=== PATIENT | female | born 1995 ===

== ENCOUNTER 2017-04-20 18:01 | Emergency (ER) | payer MEDICAID ==
[2017-04-20 18:02] VITALS: BMI 22.4
[2017-04-20 18:21] VITALS: RESP 18
--- NOTE | 2017-04-20 18:31 | C.PDOC ---
History Of Present Illness 21 y/o F at 20 weeks gestation p/w lower abdominal pain with a white thick discharge this morning that had pink spots within it. Patient unsure if this is blood. She denies dysuria, back pain, vomiting, fever. Time Seen by Provider: 04/20/17 18:22 Chief Complaint (Nursing): Abdominal Pain History Per: Patient History/Exam Limitations: no limitations Onset/Duration Of Symptoms: Sudden Onset (Since morning) Past Medical History Reviewed: Historical Data, Nursing Documentation, Vital Signs Vital Signs: Last Vital Signs Temp 98.1 F 04/20/17 18:16 Pulse 101 H 04/20/17 18:16 Resp 18 04/20/17 18:16 BP 135/37 L 04/20/17 18:16 Pulse Ox 100 04/20/17 19:08 - Medical History PMH: Asthma Family History: States: No Known Family Hx - Social History Hx Tobacco Use: Yes Hx Alcohol Use: No Hx Substance Use: No - Immunization History Hx Tetanus Toxoid Vaccination: No Hx Influenza Vaccination: No Hx Pneumococcal Vaccination: No Review Of Systems Except As Marked, All Systems Reviewed And Found Negative. Constitutional: Negative for: Fever Cardiovascular: Negative for: Chest Pain Physical Exam - Physical Exam Additional Physical Exam Comments: Constitutional: No acute distress. Head: Normocephalic. Atraumatic. Eyes: PERRL. ENT: Moist mucous membranes. Neck: Supple. Cardiovascular: Regular rate. Radial pulses 2+ bilaterally. Chest: No tenderness. Respiratory: Clear to auscultation bilaterally. GI: Soft. Nontender. Nondistended. Pelvic: No CMT or adnexal tenderness. +cottage cheese like discharge. Back: No CVA tenderness. Musculoskeletal: No tenderness or swelling of extremities. Skin: No rash. Neurologic: Alert, no focal deficit. ED Course And Treatment - Laboratory Results Result Diagrams: 04/20/17 18:41 04/20/17 18:41 O2 Sat by Pulse Oximetry: 100 Medical Decision Making Medical Decision Making: EFW = 291 g/10 ounces plus or -2 ounces Amniotic fluid: Normal qualitatively Placenta: Anterior and free of the cervical os Presentation: Footling breech HR =[144 bpm] Cervix: 3.4 cm and closed with Survey Abdominal CORD insertion [normal] Stomach [Normal] Kidneys [Normal] Blader [Normal][ Posterior fossa [normal] IMPRESSION: 1. Single live intrauterine with an estimated menstrual age of 19 weeks and 2 days plus or -1 week and 2 days. 2. Limited survey. Disposition - Disposition Disposition: HOME/ ROUTINE Disposition Time: 19:28 Condition: STABLE Prescriptions: Miconazole Nitrate [Monistat 7] 1 appl VG QPM #45 gm Instructions: Vulvovaginal Candidiasis (ED) - Clinical Impression Clinical Impression: Vaginal candidiasis
[2017-04-20 18:45] LABS: BASO % 0.3 % (0.0-2.0); EOS # 0.1 K/uL (0.0-0.7); EOS % 0.7 % (0.0-4.0); HEMATOCRIT 36.2 % (34.0-47.0); LYMPH # 2.6 K/uL (1.0-4.3); MEAN CORPUSCULAR HEMOGLOBIN 30.2 pg (27.0-31.0); MEAN PLATELET VOLUME 8.5 fL (7.2-11.7); RED CELL DISTRIBUTION WIDTH 14.4 % (11.5-14.5)
[2017-04-20 18:46] LABS: MEAN CELL VOLUME 91.4 fL (81.0-99.0); WHITE BLOOD COUNT 11.9 K/uL (4.8-10.8)
[2017-04-20 18:53] LABS: CHLORIDE 105 mmol/L (98-107); SODIUM 135 mmol/L (132-148)
[2017-04-20 18:54] LABS: POTASSIUM 4.1 mmol/L (3.6-5.2)
[2017-04-20 18:56] LABS: ALB/GLOB RATIO 1.1 (1.0-2.1); ALKALINE PHOSPHATASE 48 U/L (38-126); ALT/SGPT 25 U/L (9-52); AST/SGOT 31 U/L (14-36); BILIRUBIN,TOTAL 0.3 mg/dL (0.2-1.3); BLOOD UREA NITROGEN 10 mg/dL (7-17); CALCIUM 8.6 mg/dl (8.6-10.4); CARBON DIOXIDE 22 mmol/L (22-30); GFR AFRICAN-AMERICAN > 60; GLUCOSE,RANDOM 81 mg/dL (65-105); TOTAL PROTEIN 6.7 g/dL (6.3-8.3)
--- NOTE | 2017-04-20 19:06 | US ---
EXAM: US First Trimester, Transabdominal, Fetus A CLINICAL HISTORY: 21 years old, female; Pain; complicated by abdominal or pelvic pain; Lower; Second trimester; Gestational age or lmp: 19 wks; ; Additional info: Vaginal bleeding in , assess cervix TECHNIQUE: Real-time transabdominal obstetrical ultrasound of the maternal pelvis and the first gestation (Fetus A) of a first trimester with image documentation. EXAM DATE/TIME: Exam ordered 04/20/2017 6:26 PM COMPARISON: No relevant prior studies available. FINDINGS: Biometry BPD = [4.49cm];Estimated Menstrual Age = [19w4d]; Range = [32D0V-14M2S] HC = [16.1cm]; Estimated Menstrual Age = [18w6d]; Range = [89H8P-93R0Q] AC = [13.58cm]; Estimated Menstrual Age = [19w0d]; Range = [65L7X-76T5R] FL = [3.19cm]; Estimated Menstrual Age = [19w6d]; Range = [54Q2U-14L2M] HC/AC Ratio = [1.19] normal 1.09-1.26 EFW = 291 g/10 ounces plus or -2 ounces Amniotic fluid: Normal qualitatively Placenta: Anterior and free of the cervical os Presentation: Footling breech HR =[144 bpm] Cervix: 3.4 cm and closed with Survey Abdominal CORD insertion [normal] Stomach [Normal] Kidneys [Normal] Blader [Normal][ Posterior fossa [normal] IMPRESSION: 1. Single live intrauterine with an estimated menstrual age of 19 weeks and 2 days plus or -1 week and 2 days. 2. Limited survey.
[2017-04-20 19:08] LABS: RBC URINE 2 /hpf (0-3); URINE BACTERIA RARE (<OCC); URINE BILIRUBIN NEGATIVE (NEGATIVE); URINE BLOOD NEGATIVE (NEGATIVE); URINE COLOR Yellow (YELLOW); URINE GLUCOSE (UA) NORMAL (Normal); URINE KETONE NEGATIVE (NEGATIVE); URINE LEUKOCYTE ESTERASE NEG Leu/uL (Negative); URINE PROTEIN NEGATIVE (NEGATIVE); URINE UROBILINOGEN NORMAL mg/dL (0.2-1.0)
[2017-04-20 19:37] VITALS: BP 96/64; PULSE 73; TEMP 97.9; O2SAT 99
== END 2017-04-20 19:37 | disposition home or self-care (01) ==
LOC: C.ER 18:01
DX: O98.812 Other maternal infectious and parasitic diseases complicating pregnancy, second trimester (principal); B37.3 Candidiasis of vulva and vagina; Z3A.19 19 weeks gestation of pregnancy

== ENCOUNTER 2017-05-24 14:07 | Emergency (ER) | payer MEDICAID, OTHER ==
[2017-05-24 14:27] VITALS: BMI 24.6
[2017-05-24 14:54] LABS: SQUAMOUS EPITHIAL 15 /hpf (0-5); URINE AMORPHOUS SEDIMENT RARE /ul (<OCC); URINE BACTERIA RARE (<OCC); URINE BILIRUBIN NEGATIVE (NEGATIVE); URINE BLOOD NEGATIVE (NEGATIVE); URINE CLARITY Hazy (Clear); URINE COLOR Yellow (YELLOW); URINE GLUCOSE (UA) NORMAL (Normal); URINE LEUKOCYTE ESTERASE NEG Leu/uL (Negative); URINE NITRATE NEGATIVE (NEGATIVE); URINE PROTEIN NEGATIVE (NEGATIVE); URINE UROBILINOGEN NORMAL mg/dL (0.2-1.0)
--- NOTE | 2017-05-24 15:22 | OBHP ---
Datetime: 05/24/2017 15:17 IP Adm Impression: , intrauterine IP Chief Complaint Other: c/o pelvic pressure IP Admit Plan: Discharge home Admit Comment, IP Provider: at 24+weeks came with c/o pelvic pressure since last night. pt felt better after passing stools,no ctxs, vb, lof,+fm.no dysuria. obhx primi pmh den med pnv all morhine/amoxcillin soch de psh inguinal her jarret repair ua neg a/p at 24weeks r/o uti dc home ptl given po hyration f/u in 2-3 days Pelvic Type - PN: Adequate Extremities - PN: Normal Abdomen - PN: Normal Back - PN: Normal Breast - PN: Normal Lungs - PN: Normal Heart - PN: Normal Thyroid - PN: Normal Neurologic - PN: Normal HEENT - PN: Normal General - PN: Normal FHR - Baseline A Provider: 130 Contraction Comments Provider: none Comments, ACOG Physical Exam: gravid,non tender Vital Signs Provider: Reviewed; Within Normal Limits NICHD Variability Prov Fetus A: Moderate 6-25bpm Dilatation, Provider: 0 Effacement, Provider: 0 Station, Provider: -3 Genitourinary Exam: Normal DTRs - PN: Normal
--- NOTE | 2017-05-24 15:24 | OBDCSUM ---
Datetime: 05/24/2017 15:17 Discharged to, Provider: Other Follow up at, Provider: clinic Disch Instr Activity: Normal activity Disch Instr Diet: Regular Discharge Time: 05/24/2017 15:18 Follow up in weeks, Provider: friday Disch Referrals: None Discharge Comment, Provider: dc home ptl given po hyration f/u in 2-3 days F/U dR [place] [phone] Discharge Diagnosis Prov Other: 24wee nst r/o uti
== END 2017-05-24 15:17 | disposition home or self-care (01) ==
LOC: C.EROB 14:07
DX: O26.892 Other specified pregnancy related conditions, second trimester (principal); R10.2 Pelvic and perineal pain; Z3A.24 24 weeks gestation of pregnancy

== ENCOUNTER 2017-07-31 17:08 | Emergency (ER) | payer MEDICAID, OTHER ==
[2017-07-04 17:46] VITALS: BMI 26.9
[2017-07-31] MEDS ORDERED: Lactated Ringer's 1,000 ML IV ONE (18:09)
[2017-07-31 18:12] LABS: RBC URINE 3 /hpf (0-3); TRANSITIONAL EPITHIAL < 1 /hpf (0-3); URINE BACTERIA MOD (<OCC); URINE BILIRUBIN NEGATIVE (NEGATIVE); URINE BLOOD NEGATIVE (NEGATIVE); URINE COLOR Yellow (YELLOW); URINE GLUCOSE (UA) NORMAL (Normal); URINE KETONE NEGATIVE (NEGATIVE); URINE LEUKOCYTE ESTERASE 1+ Leu/uL (Negative); URINE PROTEIN NEGATIVE (NEGATIVE); URINE UROBILINOGEN NORMAL mg/dL (0.2-1.0); WBC URINE 9 /hpf (0-5)
[2017-07-31] MEDS ORDERED: ceFAZolin IV 1 gm in Dextrose 1 GM/50 ML BAG IVPB ONE (18:16)
[2017-08-01 01:21] VITALS: BP 93/75; PULSE 87; RESP 18; TEMP 97.7; O2SAT 100
== END 2017-07-31 19:51 | disposition home or self-care (01) ==
LOC: C.EROB 17:08
DX: O26.893 Other specified pregnancy related conditions, third trimester (principal); R10.9 Unspecified abdominal pain; Z3A.32 32 weeks gestation of pregnancy
CPT/HCPCS: 81001; 96365; 99283; J0690; J7120

== ENCOUNTER 2017-08-22 13:16 | Emergency (ER) | payer OTHER ==
[2017-07-04 17:46] VITALS: BMI 26.9
--- NOTE | 2017-08-25 10:04 | OBHP ---
Datetime: 08/22/2017 14:06 IP Adm Impression: Term, intrauterine IP Admit Plan: Discharge home Admit Comment, IP Provider: CC: Abdominal cramping HPI: 21 year old female that is at 37 weeks and 3 days with a past medical history of a he art murmur presents with abdominal pain that began last night at 8PM. When the pain began the patient states it was a 7/10. The patient took a warm bath that alleviated the pain. The patient states that she feels her "stomach tightening" and is currently in no pain. At 14 weeks of the patient was admitted to [facility] because she saw blood clots. 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: FDLMP: 12/03/16 LENNY: 09/09/17 Miscarriage at 8 weeks in 2013 and a D _C was performed No hx of abnormal pap smears STDs- Chlmaydia in 2013 that was treated 9 X 4 X 28 Past Medical Hx: Heart murmur that was diagnosed when she was a baby Surgical Hx: inguinal hernia repair at 8 years old Family Hx: Aunt-Breast Cancer, Aunt-Ovarian cancer Social Hx: no tobacco, no alcohol, no drugs, father of the baby lives in the [place]; p atient currently lives with mom at home Medications: none Allergies: peanuts- itchy, strawberries- hives, Tuna-itchy, seafood-itchy Amoxicillan-rash Morphine- bradycardia A/P: 21 year old female that is presents to the [facility] for lower pelvic sharp pain. 1.) Patient placed on heart monitor 2.) Disposition: patient to be discharged home and to follow up with obgyn at next week's appointm ent. Case discussed with Dr. Lefty Curran, PGY-1 Patient examiend.agree with resident exam, assessment and plan Pelvic Type - PN: Adequate Extremities - PN: Normal Abdomen - PN: Normal Back - PN: Normal Breast - PN: Normal Lungs - PN: Normal Heart - PN: Normal Thyroid - PN: Normal Neurologic - PN: Normal HEENT - PN: Normal General - PN: Normal FHR - Baseline A Provider: 140 Membranes, Provider: Intact Comments, ACOG Physical Exam: Awake, Alert and Oriented x3 Head Exam: ATRAUMATIC, NORMAL INSPECTION, NORMOCEPHALIC Eye Exam: EOMI, Normal appearance ENT Exam: Mucous Membranes Moist Respiratory Exam: bilateral clear to auscultation, normal breathing pattern. Cardiology: REGULAR RHYTHM, RRR, S1S2 GI _ Abdominal Exam: Soft, Tenderness, Normal Bowel Sounds, Fundal height at about 37 weeks. Extremities Exam: Normal Inspection. absent: Pedal Edema, Tenderness Psychiatric exam: Normal Affect, Normal Mood Gestation - Est Wks by US: 37.0 Pool Provider: Negative IP Hx Assessment: The History has been Reviewed and is Current EGA AdmitDate IP: 37.3 Vital Signs Provider: Reviewed; Within Normal Limits IP Chief Complaint: Uterine contractions NICHD Variability Prov Fetus A: Moderate 6-25bpm NICHD Accel Fetus A IP Provider: 15X15 FHR Category Provider Fetus A: Category I NICHD Decel Fetus A IP Provider: None Dilatation, Provider: 0 Effacement, Provider: 0 Station, Provider: -4 Genitourinary Exam: Normal DTRs - PN: Not Done Datetime: 07/31/2017 17:48 IP Chief Complaint Other: Abdominal pain
[2017-08-25 14:02] VITALS: BP 117/52; PULSE 96
== END 2017-08-22 14:29 | disposition home or self-care (01) ==
LOC: C.EROB 13:16
DX: O26.93 Pregnancy related conditions, unspecified, third trimester (principal); R10.2 Pelvic and perineal pain; Z3A.37 37 weeks gestation of pregnancy

== ENCOUNTER 2017-11-05 13:20 | Emergency (ER) | payer MEDICAID, OTHER ==
[2017-11-05 13:20] VITALS: BMI 32.2
[2017-11-05 13:30] VITALS: RESP 20; TEMP 97.9
--- NOTE | 2017-11-05 14:45 | C.PDOC ---
History Of Present Illness 22 yo female c/o subjective fever, cough, nasal congestion, ear pain, body aches and sore throat since yesterday. Pt notes she used "natural remedies with honey and onion" without relief. Denies SOB, chest pain, headache, neck pain, n /v, abdominal pain or any other associated symptoms. Pt is breast feeding. Time Seen by Provider: 11/05/17 14:34 Chief Complaint (Nursing): Flu-like Symptoms History Per: Patient History/Exam Limitations: no limitations Onset/Duration Of Symptoms: Days (yesterday) Current Symptoms Are (Timing): Still Present Associated Symptoms: Fever, Sore Throat, Cough Past Medical History Vital Signs: Last Vital Signs Temp 97.9 F 11/05/17 14:59 Pulse 65 11/05/17 14:59 Resp 20 11/05/17 14:59 BP 138/75 11/05/17 14:59 Pulse Ox 100 11/05/17 14:59 - Medical History PMH: Asthma Denies: Depression, Diabetes, HTN - [facility] Procedures DELIVERY OF PRODUCTS OF CONCEPTION, EXTERNAL APPROACH (09/12/17) MEASUREMENT OF POC, CARDIAC RATE, DIVISION DIRECTOR APPROACH (09/12/17) REPAIR PERINEUM SKIN, EXTERNAL APPROACH (09/12/17) Family History: States: Unknown Family Hx - Social History Hx Tobacco Use: Yes Hx Alcohol Use: No Hx Substance Use: No - Immunization History Hx Tetanus Toxoid Vaccination: No Hx Influenza Vaccination: No Hx Pneumococcal Vaccination: No Review Of Systems Except As Marked, All Systems Reviewed And Found Negative. Constitutional: Positive for: Fever, Chills ENT: Positive for: Ear Pain, Nose Congestion, Throat Pain Respiratory: Positive for: Cough Physical Exam - Physical Exam Appears: Well, Non-toxic, No Acute Distress Skin: Normal Color, Warm, Dry Head: Atraumatic, Normacephalic Eye(s): bilateral: Normal Inspection, PERRL, EOMI Ear(s): Left: Normal, Right: TM Erythema Nose: Normal Oral Mucosa: Moist Throat: Normal, No Erythema, No Exudate Neck: Normal, Normal ROM, Supple Lymphatic: Normal Exam Chest: Symmetrical Cardiovascular: Rhythm Regular Respiratory: Normal Breath Sounds, No Accessory Muscle Use Gastrointestinal/Abdominal: Normal Exam, Soft, No Tenderness Back: Normal Inspection Extremity: Normal ROM Neurological/Psych: Oriented x3, Normal Speech ED Course And Treatment O2 Sat by Pulse Oximetry: 99 Progress Note: Instructed symptomatic treatment and concern with bresatfeeding. Pt notes also takes formula. Instructed to follow up with PMD in 1-2 days or return to ERif symptoms persist or worsen. Disposition - Disposition Disposition: HOME/ ROUTINE Disposition Time: 14:41 Condition: STABLE Additional Instructions: Follow up with your primary medical doctor or clinic in 2-5 days for further evaluation. Take medications as prescribed. Return to the emergency department at any time if symptoms persist or worsen. Prescriptions: Azithromycin [Zithromax] 250 mg PO DAILY #6 tab Fluticasone Nasal [Flonase] 1 actuation NS DAILY #1 spr Ibuprofen [Motrin] 600 mg PO Q6 PRN #20 tab PRN Reason: Pain, Mild (1-3) Loratadine [Claritin] 10 mg PO DAILY #10 tab Instructions: Otitis Media (ED) Forms: [employer] (Hebrew) - Clinical Impression Clinical Impression: Otitis media, Influenza-like illness
[2017-11-05 15:01] VITALS: BP 138/75; PULSE 65
[2017-11-05 15:40] VITALS: O2SAT 99
--- NOTE | 2017-11-06 15:43 | CARD ---
APPROVED REPORT EKG Measurement Heart [id number] <Conclusion> Normal sinus rhythm Normal ECG
== END 2017-11-05 15:02 | disposition home or self-care (01) ==
LOC: C.ER 13:20
DX: J11.1 Influenza due to unidentified influenza virus with other respiratory manifestations (principal); H66.90 Otitis media, unspecified, unspecified ear; Z87.891 Personal history of nicotine dependence

== ENCOUNTER 2017-12-20 13:31 | Emergency (ER) | payer MEDICAID, OTHER ==
[2017-12-20 13:31] VITALS: BMI 32.2
[2017-12-20] MEDS ORDERED: Sodium Chloride 0.9% 1,000 ML IV ONE (14:13)
[2017-12-20] MEDS ORDERED: Sodium Chloride 0.9% 1,000 ML ONE (14:42)
--- NOTE | 2017-12-20 14:47 | C.PDOC ---
History Of Present Illness 22 yo female come in for evaluation of RLQ pain developed since yesterday. Pt reports, pain is localized, sharp, not improving with Ibuprofen. Otherwise, pt denies fever, chills, recent illness, CP, SOB, dyspnea, cough, N/V/D, back pain , UTI sx, change in appetite. Ambulate to ED for evaluation, not in nay apparent distress. Time Seen by Provider: 12/20/17 14:05 Chief Complaint (Nursing): Female Genitourinary History Per: Patient Past Medical History Reviewed: Historical Data, Nursing Documentation, Vital Signs Vital Signs: Last Vital Signs Temp 98.2 F 12/20/17 17:21 Pulse 78 12/20/17 17:21 Resp 18 12/20/17 17:21 BP 118/68 12/20/17 17:21 Pulse Ox 98 12/20/17 17:21 - Medical History PMH: Asthma Denies: Depression, Diabetes, HTN Surgical History: Hernia Repair (Left) - [email or web address] Procedures DELIVERY OF PRODUCTS OF CONCEPTION, EXTERNAL APPROACH (09/12/17) MEASUREMENT OF POC, CARDIAC RATE, CULINARY INTERNSHIP APPROACH (09/12/17) REPAIR PERINEUM SKIN, EXTERNAL APPROACH (09/12/17) Family History: States: Unknown Family Hx - Social History Hx Tobacco Use: Yes Hx Alcohol Use: No Hx Substance Use: No - Immunization History Hx Tetanus Toxoid Vaccination: No Hx Influenza Vaccination: No Hx Pneumococcal Vaccination: No Review Of Systems Except As Marked, All Systems Reviewed And Found Negative. Constitutional: Negative for: Fever, Chills ENT: Negative for: Ear Discharge, Nose Discharge, Throat Pain, Throat Swelling Cardiovascular: Negative for: Chest Pain, Palpitations, Edema, Light Headedness Respiratory: Negative for: Cough, Shortness of Breath, Wheezing Gastrointestinal: Positive for: Abdominal Pain. Negative for: Nausea, Vomiting , Diarrhea, Melena, Hematochezia, Hematemesis Genitourinary: Negative for: Dysuria, Frequency Musculoskeletal: Negative for: Neck Pain, Back Pain Skin: Negative for: Rash Neurological: Negative for: Weakness, Numbness, Headache, Dizziness Physical Exam - Physical Exam Appears: Well, Non-toxic, No Acute Distress Skin: Normal Color, Warm, Dry, No Rash Head: Normacephalic Eye(s): bilateral: PERRL Nose: No Discharge Oral Mucosa: Moist, No Drooling Throat: No Erythema, No Drooling Neck: Trachea Midline, Supple Cardiovascular: Rhythm Regular, No Murmur, No JVD Respiratory: No Decreased Breath Sounds, No Accessory Muscle Use, No Stridor, No Wheezing Gastrointestinal/Abdominal: Soft, Tenderness (RLQ), No Organomegaly, No Distention, No Guarding, No Rebound Back: No CVA Tenderness Extremity: Normal ROM, No Deformity, No Swelling Neurological/Psych: Oriented x3, Normal Speech ED Course And Treatment - Laboratory Results Result Diagrams: 12/20/17 15:00 12/20/17 15:00 Lab Interpretation: Normal O2 Sat by Pulse Oximetry: 97 Pulse Ox Interpretation: Normal - CT Scan/US CT abd/pelvis Other Rad Studies (CT/US): Radiology Report Reviewed CT/US Interpretation: PROCEDURE: CT Abdomen and Pelvis with contrast. HISTORY : RLQ pain, history of hernia surgery. COMPARISON: None. TECHNIQUE: Contrast dose: 100 mL Visipaque 320. Radiation dose: Total exam DLP = 674.82 mGy-cm. This CT exam was performed using one or more of the following dose reduction techniques: Automated exposure control, adjustment of the mA and/or kV according to patient size, and/or use of iterative reconstruction technique. FINDINGS: LOWER THORAX: No visible consolidation, pleural effusion, or pneumothorax. LIVER: Unremarkable. GALLBLADDER AND BILE DUCTS: Contracted gallbladder appears grossly unremarkable. PANCREAS: Unremarkable. SPLEEN: At least 3 probable tiny splenules. Otherwise unremarkable. ADRENALS: Unremarkable. KIDNEYS AND URETERS: The kidneys enhance symmetrically. No hydronephrosis or obstructing calculus identified. VASCULATURE: No aortic aneurysm. BOWEL: Stomach is nondistended. Lack of oral contrast limits evaluation for bowel pathology. Bowel loops appear within normal limits of caliber without evidence of obstruction. Moderate constipation. APPENDIX: The presumed appendix appears within normal limits of caliber. PERITONEUM: No definite free air. Small pelvic fluid, may be physiologic. LYMPH NODES: No bulky adenopathy identified. BLADDER: Unremarkable. REPRODUCTIVE: Uterus is present. Evidence of right ovarian cyst measuring approximately 16 mm. BONES: No acute osseous abnormality is detected. OTHER FINDINGS: None. IMPRESSION: Evidence of right ovarian cyst measuring approximately 16 mm. Small pelvic free fluid as well as fluid in the region of the right adnexa. Recommend pelvic ultrasound for further evaluation. The presumed appendix appears within normal limits of caliber. Moderate constipation. Additional findings as above. Progress Note: On re-evaluation, pt is afebrile, hemodynamicaly stable. NOn- toxic. PT WAS DRINKING WATER ALL TIME, WHILE IN ED, TOLERATED WELL. neck: Supple, (-) meningeal sign. Lungs: CTA B/L, BS equal B/L. Abd: benign, (-) guarding, (-) rebound, (-) RLQ tenderness. Back: (-) CVA tenderness. Blood work , imaging review and appears without acute abnoramlities. Pt has clinical findings c/w Right ovarian cyst. Pt advised. ref. to f/u with GYNin 2-3 days for re-eavl. retur if any new changes. Disposition Counseled Patient/Family Regarding: Studies Performed, Diagnosis, Need For Followup, Rx Given - Disposition [facility] Disposition: HOME/ ROUTINE Disposition Time: 17:40 Condition: STABLE Additional Instructions: FOLLOW UP WITH [employer] IN 2-3 DAYS FOR RE-EVALUATION AND FURTHER TREATMENT RETURN TO ED IF ANY WORSENING OR NEW CHANGES. Prescriptions: traMADol [Ultram] 50 mg PO TID #7 tab Instructions: Ovarian Cyst (ED) Forms: [employer] (Nigerian) - Clinical Impression Clinical Impression: Ovarian cyst
[2017-12-20 14:59] LABS: HCG,QUALITATIVE URINE NEGATIVE (NEGATIVE)
[2017-12-20 15:01] LABS: SQUAMOUS EPITHIAL 2 /hpf (0-5); URINE AMORPHOUS SEDIMENT MODERATE /ul (<OCC); URINE BACTERIA RARE (<OCC); URINE BILIRUBIN NEGATIVE (NEGATIVE); URINE BLOOD NEGATIVE (NEGATIVE); URINE CLARITY Turbid (Clear); URINE COLOR Yellow (YELLOW); URINE GLUCOSE (UA) NORMAL (Normal); URINE LEUKOCYTE ESTERASE NEG Leu/uL (Negative); URINE NITRATE NEGATIVE (NEGATIVE); URINE PROTEIN NEGATIVE (NEGATIVE); URINE UROBILINOGEN NORMAL mg/dL (0.2-1.0)
[2017-12-20 15:04] LABS: BASO # 0.1 K/uL (0.0-0.2); BASO % 0.8 % (0.0-2.0); EOS # 0.2 K/uL (0.0-0.7); EOS % 1.9 % (0.0-4.0); HEMOGLOBIN 12.8 g/dL (11.0-16.0); LYMPH # 2.6 K/uL (1.0-4.3); LYMPH % 31.4 % (20.0-40.0); MEAN CELL VOLUME 89.1 fL (81.0-99.0); MEAN CORPUSCULAR HEMOGLOBIN 30.2 pg (27.0-31.0); MEAN CORPUSCULAR HGB CONC 33.8 g/dL (33.0-37.0); MEAN PLATELET VOLUME 8.3 fL (7.2-11.7); MONO # 0.6 K/uL (0.0-0.8); MONO % 7.6 % (0.0-10.0); NEUT # 4.7 K/uL (1.8-7.0); NEUT % 58.3 % (50.0-75.0); NRBC % 0.1 % (0.0-2.0); RBC 4.25 Mil/uL (3.80-5.20); RED CELL DISTRIBUTION WIDTH 13.8 % (11.5-14.5); WHITE BLOOD COUNT 8.1 K/uL (4.8-10.8)
[2017-12-20 15:14] LABS: ALB/GLOB RATIO 1.2 (1.0-2.1); ALBUMIN 3.7 g/dL (3.5-5.0); ALT/SGPT 25 U/L (9-52); AST/SGOT 18 U/L (14-36); BLOOD UREA NITROGEN 12 mg/dL (7-17); CALCIUM 8.5 mg/dl (8.6-10.4); GFR AFRICAN-AMERICAN > 60; GFR NON-AFRICAN AMERICAN > 60
[2017-12-20] MEDS ORDERED: Iodixanol 320 MG/ML 100 ML BOTTLE IV ONE (15:26)
[2017-12-20 17:22] VITALS: BP 118/68; PULSE 78; RESP 18; TEMP 98.2
--- NOTE | 2017-12-20 17:38 | CT ---
PROCEDURE: CT Abdomen and Pelvis with contrast HISTORY: RLQ pain, history of hernia surgery. COMPARISON: None. TECHNIQUE: Contrast dose: 100 mL Visipaque 320 Radiation dose: Total exam DLP = 674.82 mGy-cm. This CT exam was performed using one or more of the following dose reduction techniques: Automated exposure control, adjustment of the mA and/or kV according to patient size, and/or use of iterative reconstruction technique. FINDINGS: LOWER THORAX: No visible consolidation, pleural effusion, or pneumothorax. LIVER: Unremarkable. GALLBLADDER AND BILE DUCTS: Contracted gallbladder appears grossly unremarkable. PANCREAS: Unremarkable. SPLEEN: At least 3 probable tiny splenules. Otherwise unremarkable. ADRENALS: Unremarkable. KIDNEYS AND URETERS: The kidneys enhance symmetrically. No hydronephrosis or obstructing calculus identified. VASCULATURE: No aortic aneurysm. BOWEL: Stomach is nondistended. Lack of oral contrast limits evaluation for bowel pathology. Bowel loops appear within normal limits of caliber without evidence of obstruction. Moderate constipation. APPENDIX: The presumed appendix appears within normal limits of caliber. PERITONEUM: No definite free air. Small pelvic fluid, may be physiologic. LYMPH NODES: No bulky adenopathy identified. BLADDER: Unremarkable. REPRODUCTIVE: Uterus is present. Evidence of right ovarian cyst measuring approximately 16 mm. BONES: No acute osseous abnormality is detected. OTHER FINDINGS: None. IMPRESSION: Evidence of right ovarian cyst measuring approximately 16 mm. Small pelvic free fluid as well as fluid in the region of the right adnexa. Recommend pelvic ultrasound for further evaluation. The presumed appendix appears within normal limits of caliber. Moderate constipation. Additional findings as above.
[2017-12-20 17:54] VITALS: O2SAT 97
== END 2017-12-20 18:11 | disposition home or self-care (01) ==
LOC: C.ER 13:31
DX: N83.201 Unspecified ovarian cyst, right side (principal)
CPT/HCPCS: 74177; 80053; 81001; 84703; 85025; 87040; 96361; 96374; 99285; J1885; J7040; Q9967

== ENCOUNTER 2018-06-26 18:40 | Emergency (ER) | payer MEDICAID ==
[2018-06-26 18:41] VITALS: BMI 32.2
--- NOTE | 2018-06-26 19:52 | C.PDOC ---
History Of Present Illness 22 year old female presents to the ED c/o chest tightness, SOB that started today at 03:00. Patient reports she has been taking aspirin every 6 hours at the insistence of her Mother. Patient states also feeling a tingling sensation on her left arm. Patient is speaking in complete sentences, states chest discomfort present a the time. Patient denies fever, chills, nausea, diarrhea, weakness, numbness. Time Seen by Provider: 06/26/18 19:51 Chief Complaint (Nursing): Chest Pain History Per: Patient History/Exam Limitations: no limitations Onset/Duration Of Symptoms: Hrs Current Symptoms Are (Timing): Still Present Quality: "Pain" Associated Symptoms: denies: Nausea Recent travel outside of the [place]: No Additional History Per: Patient Past Medical History Reviewed: Historical Data, Nursing Documentation, Vital Signs Vital Signs: Last Vital Signs Temp 98 F 06/26/18 20:08 Pulse 76 06/26/18 20:08 Resp 18 06/26/18 20:08 BP 109/76 06/26/18 20:08 Pulse Ox 98 06/26/18 20:53 - Medical History PMH: Asthma Denies: Depression, Diabetes, HTN Surgical History: Hernia Repair (Left) - [facility] Procedures DELIVERY OF PRODUCTS OF CONCEPTION, EXTERNAL APPROACH (09/12/17) MEASUREMENT OF POC, CARDIAC RATE, COMPUTER NUMERICAL CONTROL OPERATOR APPROACH (09/12/17) REPAIR PERINEUM SKIN, EXTERNAL APPROACH (09/12/17) Family History: States: Unknown Family Hx - Social History Hx Tobacco Use: Yes Hx Alcohol Use: No Hx Substance Use: No - Immunization History Hx Tetanus Toxoid Vaccination: No Hx Influenza Vaccination: No Hx Pneumococcal Vaccination: No Review Of Systems Constitutional: Negative for: Fever, Chills Eyes: Negative for: Vision Change Cardiovascular: Positive for: Chest Pain. Negative for: Palpitations Respiratory: Positive for: Shortness of Breath. Negative for: Cough Gastrointestinal: Negative for: Nausea, Vomiting, Abdominal Pain Musculoskeletal: Positive for: Other (tingling sensation left arm) Skin: Negative for: Rash Neurological: Negative for: Weakness, Numbness Physical Exam - Physical Exam Appears: Non-toxic, No Acute Distress Skin: Warm, Dry Head: Normacephalic Eye(s): bilateral: Normal Inspection Oral Mucosa: Moist Neck: Supple Chest: Symmetrical Cardiovascular: Rhythm Regular Respiratory: No Rales, No Rhonchi, No Wheezing Gastrointestinal/Abdominal: Soft, No Tenderness, No Guarding, No Rebound Back: Normal Inspection Extremity: No Tenderness, No Swelling Extremity: Bilateral: Atraumatic, Normal Color And Temperature, Normal ROM Neurological/Psych: Oriented x3, Normal Speech, Other (no focal deficits) Gait: Steady ED Course And Treatment - Laboratory Results Result Diagrams: 06/26/18 20:07 06/26/18 20:07 ECG: Interpreted By Me, Viewed By Me ECG Rhythm: Sinus Rhythm (72), Nonspecific Changes O2 Sat by Pulse Oximetry: 98 (ON RA) Pulse Ox Interpretation: Normal - Radiology CXR: Interpreted by Me, Viewed By Me - CT Scan/US CT head Other Rad Studies (CT/US): Read By Radiologist, Radiology Report Reviewed CT/US Interpretation: EXAM: CT Head Without Intravenous Contrast. EXAM DATE/ TIME: 06/26/2018 7:56 PM. CLINICAL HISTORY: 22 years old, female; Signs and symptoms; Other: Non trauma pain; Additional info: Headache. TECHNIQUE: Axial computed tomography images of the head/brain without intravenous contrast. All CT scans at. this facility use at least one of these dose optimization techniques: automated exposure control; mA. and/or kV adjustment per patient size (includes targeted exams where dose is matched to clinical. indication); or iterative reconstruction. Coronal and sagittal reformatted images were created and reviewed. COMPARISON: No relevant prior studies available. FINDINGS: Brain: Unremarkable. No hemorrhage. No significant white matter disease. No edema. Ventricles: Unremarkable. No ventriculomegaly. Bones/joints : Unremarkable. No acute fracture. Soft tissues: Unremarkable. Sinuses: Air- fluid level and frothy material in the sphenoid sinuses. Mastoid air cells: Unremarkable as visualized. No mastoid effusion. IMPRESSION: 1. No acute intracranial finding. 2. Sphenoid sinusitis. Thank you for allowing us to participate in the care of your patient. Dictated and Authenticated by: Abram Guillen MD. 06/26/2018 8:50 PM Eastern Time ([place] & [place]) Progress Note: Plan: - CT head. - EKG. - Labs. - NIHSS Stroke Scale - Date/Time Evaluation Performed Date Performed: 06/26/18 Time Performed: 19:42 When Was NIHSS Performed: Baseline - How Severe is the [place]oke Level of Consciousness: 0=Alert LOC to Questions: 0=Both comments correct LOC to commands: 0=Obeys both correctly Best Gaze: 0=Normal Visual: 0=No visual loss Facial: 0=Normal Motor Arm - Left: 0=No drift Motor Arm - Right: 0=No drift Motor Leg - Left: 0=No drift Motor Leg - Right: 0=No drift Limb Ataxia: 0=Absent Sensory: 0=Normal Best Language: 0=No aphasia Dysarthia: 0=Normal articulation Extinction & Inattention (Neglect): 0=Normal, no object Score: 0 Severity Of Stroke: 0= No Stroke Disposition Counseled Patient/Family Regarding: Studies Performed, Diagnosis, Need For Followup, Rx Given - Disposition Referrals: [facility] [Outside] [facility] [Outside] Disposition: HOME/ ROUTINE Disposition Time: 21:49 Condition: FAIR Additional Instructions: Please return if symptoms recur Prescriptions: Naproxen [Naprosyn] 1 tab PO BID PRN #25 tab PRN Reason: Pain Instructions: Costochondritis (DC) Forms: [facility] (Azeri) - Clinical Impression Clinical Impression: Costochondral chest pain - Scribe Statement The provider has reviewed the documentation as recorded by the Scribe Leobardo Farooq All medical record entries made by the Scribe were at my direction and personally dictated by me. I have reviewed the chart and agree that the record accurately reflects my personal performance of the history, physical exam, medical decision making, and the department course for this patient. I have also personally directed, reviewed, and agree with the discharge instructions and disposition.
[2018-06-26 20:09] VITALS: RESP 18
[2018-06-26 20:11] LABS: BASO # 0.1 K/uL (0.0-0.2); BASO % 0.7 % (0.0-2.0); EOS # 0.2 K/uL (0.0-0.7); EOS % 2.1 % (0.0-4.0); HEMOGLOBIN 12.7 g/dL (11.0-16.0); LYMPH # 2.5 K/uL (1.0-4.3); MEAN CELL VOLUME 87.5 fL (81.0-99.0); MEAN CORPUSCULAR HEMOGLOBIN 28.6 pg (27.0-31.0); MEAN CORPUSCULAR HGB CONC 32.7 g/dL (33.0-37.0); MEAN PLATELET VOLUME 8.6 fL (7.2-11.7); MONO # 0.6 K/uL (0.0-0.8); MONO % 7.3 % (0.0-10.0); NEUT # 5.1 K/uL (1.8-7.0); NEUT % 59.9 % (50.0-75.0); NRBC % 0.1 % (0.0-2.0); RBC 4.43 Mil/uL (3.80-5.20); RED CELL DISTRIBUTION WIDTH 13.5 % (11.5-14.5); WHITE BLOOD COUNT 8.5 K/uL (4.8-10.8)
[2018-06-26 20:18] LABS: INR 1.1; PROTHROMBIN TIME 12.4 SECONDS (9.7-12.2)
[2018-06-26 20:28] LABS: ALB/GLOB RATIO 1.6 (1.0-2.1); ALBUMIN 4.1 g/dL (3.5-5.0); ALT/SGPT 16 U/L (9-52); AST/SGOT 13 U/L (14-36); BLOOD UREA NITROGEN 16 mg/dL (7-17); CALCIUM 9.3 mg/dl (8.6-10.4); GFR AFRICAN-AMERICAN > 60; GFR NON-AFRICAN AMERICAN > 60
[2018-06-26 20:31] LABS: SQUAMOUS EPITHIAL 7 /hpf (0-5); URINE BACTERIA RARE (<OCC); URINE BILIRUBIN NEGATIVE (NEGATIVE); URINE BLOOD NEGATIVE (NEGATIVE); URINE CLARITY Hazy (Clear); URINE COLOR Yellow (YELLOW); URINE GLUCOSE (UA) NORMAL (Normal); URINE LEUKOCYTE ESTERASE NEG Leu/uL (Negative); URINE PROTEIN NEGATIVE (NEGATIVE); URINE UROBILINOGEN NORMAL mg/dL (0.2-1.0)
[2018-06-26 22:22] VITALS: BP 126/72; PULSE 73; TEMP 98.1; O2SAT 99
--- NOTE | 2018-06-27 06:37 | CT ---
Date of service: 06/26/2018 PROCEDURE: CT HEAD WITHOUT CONTRAST. HISTORY: headache COMPARISON: None available. TECHNIQUE: Axial computed tomography images were obtained through the head/brain without intravenous contrast. Radiation dose: Total exam DLP = 818 mGy-cm. This CT exam was performed using one or more of the following dose reduction techniques: Automated exposure control, adjustment of the mA and/or kV according to patient size, and/or use of iterative reconstruction technique. FINDINGS: HEMORRHAGE: No intracranial hemorrhage. BRAIN: No mass effect or edema. No atrophy or chronic microvascular ischemic changes. VENTRICLES: Unremarkable. No hydrocephalus. CALVARIUM: Unremarkable. PARANASAL SINUSES: Air-fluid level and frothy material in the sphenoid sinuses. Mild opacification of the ethmoid air cells. MASTOID AIR CELLS: Unremarkable as visualized. No inflammatory changes. OTHER FINDINGS: None. IMPRESSION: No acute intracranial abnormality. Sphenoid sinusitis. If symptoms persist, consider correlation with MRI. These findings were preliminarily reported at 8:50 p.m. on 06/26/[address] Abram Guillen from [facility].
--- NOTE | 2018-06-29 08:04 | CARD ---
APPROVED REPORT Date of service: 06/26/2018 EKG Measurement Heart [id number] <Conclusion> Normal sinus rhythm RSR' or QR pattern in V1 suggests right ventricular conduction delay Borderline ECG
== END 2018-06-26 22:22 | disposition home or self-care (01) ==
LOC: C.ER 18:40
DX: R07.89 Other chest pain (principal)
CPT/HCPCS: 70450; 80053; 81001; 84484; 84703; 85025; 85610; 85730; 93005; 96374; 99284; J1885